=== PATIENT | male | born 1970 | race Caucasian/White ===

== ENCOUNTER 2021-08-25 19:56 | Emergency (ER) | payer SELFPAY ==
[2021-08-25 20:12] LABS: BASOPHIL 0.6 % (0-2); EOSINOPHIL 1.5 % (0-5); HCT 48.1 % (42.0-52.0); HGB 16.5 g/dl (13.2-18.0); LYMPHOCYTE 28.6 % (15-48); MCH 31.3 pg (25.0-31.0); MCHC 34.3 g/dL (32.0-36.0); MCV 91.3 fL (78.0-100.0); MONOCYTE 6.7 % (0-12); MPV 10.5 fL (6.0-9.5); NRBC 0; PLT 350 K/uL (150-400); RBC 5.27 M/uL (4.70-6.00); RDW 13.5 % (11.5-14.0); WBC 18.3 K/uL (4.0-10.5)
[2021-08-25 20:13] LABS: NEUTROPHIL 61.9 % (41-80)
[2021-08-25 20:19] LABS: INR 1.02 (0.9-1.2); PROTHROMBIN TIME 13.1 SECONDS (11.9-13.9); PTT 23.7 SECONDS (24.9-34.6)
[2021-08-25 20:29] LABS: ALBUMIN 4.5 g/dL (3.4-5.0); BILIRUBIN - TOTAL 0.3 mg/dL (0.2-1.0); BUN/CREAT RATIO (CALC) 12.1 RATIO; CREATININE 1.16 mg/dL (0.67-1.17); GLOBULIN (CALCULATION) 3.6 g/dL; POTASSIUM 3.4 mmol/L (3.5-5.1); TOTAL PROTEIN 8.1 g/dL (6.4-8.2)
== END 2021-08-25 20:43 | disposition admitted as inpatient to this hospital (09) ==
LOC: FER 19:56
PROVIDERS: Internal Medicine
DX: I21.29 ST elevation (STEMI) myocardial infarction involving other sites (principal); E11.9 Type 2 diabetes mellitus without complications; F17.210 Nicotine dependence, cigarettes, uncomplicated; Z20.822 Contact with and (suspected) exposure to COVID-19
CPT/HCPCS: 36415; 71045; 80053; 84484; 85025; 85610; 85730; 93005; J1644; J2270; J2405; J3010; U0002